=== PATIENT | male | born 1950 | race Caucasian/White ===

== ENCOUNTER → 2016-12-14 | Outpatient (CLI) | payer OTHER | END | disposition home or self-care (01) | LOC: GMAM 15:10 | PROVIDERS: ATTEND Family Medicine | DX: Z00.00 Encounter for general adult medical examination without abnormal findings (principal); R80.9 Proteinuria, unspecified ==

== ENCOUNTER → 2017-02-15 | Outpatient (CLI) | payer OTHER | END | disposition home or self-care (01) | LOC: GMAM 15:02 | PROVIDERS: ATTEND Family Medicine | DX: R97.20 Elevated prostate specific antigen [PSA] (principal) ==

== ENCOUNTER → 2017-08-25 | Outpatient (CLI) | payer OTHER | LOC: GMAM 14:57 | PROVIDERS: ATTEND Family Medicine | DX: R97.20 Elevated prostate specific antigen [PSA] (principal) ==

== ENCOUNTER → 2018-03-02 | Outpatient (CLI) | payer MEDICARE | LOC: LAB.O 14:05 | PROVIDERS: ATTEND Urology | DX: R97.20 Elevated prostate specific antigen [PSA] (principal) ==

== ENCOUNTER → 2018-05-04 | Outpatient (CLI) | payer MEDICARE | LOC: GMAM 12:33 | PROVIDERS: ATTEND Family Medicine | DX: R97.20 Elevated prostate specific antigen [PSA] (principal) ==

== ENCOUNTER → 2018-11-01 | Outpatient (CLI) | payer MEDICARE | LOC: GMAM 11:58 | PROVIDERS: ATTEND Family Medicine | DX: E29.9 Testicular dysfunction, unspecified (principal) ==

== ENCOUNTER → 2019-04-26 | Outpatient (CLI) | payer MEDICARE | LOC: LAB.O 13:58 | PROVIDERS: ATTEND Urology | DX: R97.20 Elevated prostate specific antigen [PSA] (principal) ==

== ENCOUNTER → 2019-05-08 | Outpatient (CLI) | payer MEDICARE | LOC: GMA 11:48 | PROVIDERS: ATTEND Family Medicine | DX: E29.9 Testicular dysfunction, unspecified (principal); I10 Essential (primary) hypertension; R73.09 Other abnormal glucose; Z12.5 Encounter for screening for malignant neoplasm of prostate ==

== ENCOUNTER → 2019-06-09 | Outpatient (CLI) | payer MEDICARE ==
--- NOTE | 2019-06-09 15:12 | US ---
EXAM DESCRIPTION: Extremity,Lower Roni Arteries: Ultrasound. CLINICAL HISTORY: IDIOPATHIC PROGRESSIVE NEUROPATHY COMPARISON: None. TECHNIQUE: Doppler evaluation of the bilateral lower extremity arterial flow waveforms and velocities. FINDINGS: Arterial waveforms in the right lower extremity are triphasic from the right common femoral artery through the right dorsalis pedis artery.. Arterial waveforms in the left lower extremity are triphasic from the left common femoral artery through the left dorsalis pedis artery.. Comments: Velocities are symmetric bilaterally except for elevation of the right posterior tibial artery velocity and decrease in the right peroneal artery velocity. Also slight elevation of the right dorsalis pedis artery velocity. IMPRESSION: Doppler evaluation of the bilateral lower extremity arterial systems showing no evidence of significant atherosclerotic occlusive disease. If these findings are discordant with clinical findings, consider follow-up lower extremity CTA. Electronically signed by: Anatoly Henning MD 06/09/2019 3:11 PM CDT
== END ==
LOC: US 13:30
PROVIDERS: ATTEND Family Medicine
DX: G60.3 Idiopathic progressive neuropathy (principal)

== ENCOUNTER → 2019-10-13 | Outpatient (CLI) | payer MEDICARE ==
--- NOTE | 2019-10-13 17:02 | MRI ---
EXAM DESCRIPTION: Knee,Left CLINICAL HISTORY: PAIN IN LEFT KNEE. Pain, medial side under patella, stepped off ladder wrong. COMPARISON: Radiograph 10/10/2019. TECHNIQUE: MRI of the left knee is performed with multiplanar multi sequence imaging, without intravenous contrast. FINDINGS: Bone and joint: Nondisplaced fracture of the lateral tibial plateau (posterior aspect) with moderate surrounding bone marrow edema. There is minimal (approximately 1 mm) cortical step-off along the periphery of the fracture. This is associated with nondisplaced fissuring of the overlying cartilage. Mild grade 1 anterolisthesis of the lateral knee compartment. Focal grade 4 chondral fissuring involves the medial patellar facet. There is full-thickness cartilage loss at the lateral patellar facet superiorly. Medial meniscus: Increased degenerative intrasubstance signal within the posterior horn and body without definite tear Lateral meniscus: Possible nondisplaced horizontal cleavage tear of the body and posterior horn body junction (for example series 6 one image 21). No displaced meniscal fragment. Anterior cruciate ligament: Intact Posterior cruciate ligament: Intact Medial collateral ligament: Intact Lateral collateral ligament: Intact Popliteus tendon: Intact Biceps femoris tendon: Intact Iliotibial band: Intact Medial and lateral retinaculum: Intact Extensor mechanism: The distal quadriceps tendon is intact. The patella tendon is intact. Soft tissues: Trace Leigh's cyst. Nonspecific prepatellar and infrapatellar soft tissue edema. IMPRESSION: 1. Posterior lateral tibial plateau nondisplaced fracture with moderate associated bone marrow edema/contusion. Minimal step-off of the subchondral bone plate with mild overlying cartilage fissuring. 2. Possible nondisplaced lateral meniscus tear. 3. High-grade patellofemoral chondrosis with full-thickness cartilage loss along the superior lateral patella facet. Electronically signed by: Donn Barnhart DO 10/13/2019 5:00 PM [facility]
== END ==
LOC: MRI 12:39
PROVIDERS: ATTEND Nurse Practitioner Family
DX: S82.124A Nondisplaced fracture of lateral condyle of right tibia, initial encounter for closed fracture (principal); M22.42 Chondromalacia patellae, left knee

== ENCOUNTER → 2019-10-23 | Outpatient (CLI) | payer MEDICARE ==
--- NOTE | 2019-10-23 09:13 | RAD ---
EXAM DESCRIPTION: Knee,Left 1 or 2 Views CLINICAL HISTORY: 69 years Male, PAIN IN LEFT KNEE AP LAT TECHNIQUE: 2 views of the left knee were performed. COMPARISON: MRI left knee dated October 13, 2019 and radiograph October 10, 2019. FINDINGS: The visualized bones appear well mineralized. Subtle lucency through the lateral tibial plateau with slight depression consistent with lateral tibial plateau fracture as seen on the MRI. The medial and lateral compartment joint space are well-maintained. Small amount of suprapatellar joint effusion. Mild patellofemoral compartment osteoarthritis. The overlying soft tissues appear grossly unremarkable. IMPRESSION: 1. Subtle lucency through the lateral tibial plateau with slight depression consistent with lateral tibial plateau fracture as noted on the recent MRI. Electronically signed by: Moses Robledo MD 10/23/2019 9:12 AM [facility]
== END ==
LOC: RAD 07:47
PROVIDERS: ATTEND Orthopaedic Surgery
DX: S82.124D Nondisplaced fracture of lateral condyle of right tibia, subsequent encounter for closed fracture with routine healing (principal)

== ENCOUNTER → 2019-11-23 | Outpatient (CLI) | payer MEDICARE ==
--- NOTE | 2019-11-23 17:36 | RAD ---
EXAM DESCRIPTION: Knee,Left 1 or 2 Views CLINICAL HISTORY: 69 years Male, CLOSED FRACTURE OF TIBIAL PLATEAU LEFT COMPARISON: 10/23/2019 Findings: Two views/radiographs The previously described lateral tibial plateau fracture lucency is less apparent on today's examination compatible with healing. No new fracture identified. Joint spaces are preserved. No dislocation. No joint effusion. IMPRESSION: Healing lateral tibial plateau fracture. Electronically signed by: Godwin Suero MD 11/23/2019 5:34 PM [facility]
== END ==
LOC: RAD 10:27
PROVIDERS: ATTEND Orthopaedic Surgery
DX: S82.102D Unspecified fracture of upper end of left tibia, subsequent encounter for closed fracture with routine healing (principal)

== ENCOUNTER → 2019-12-21 | Outpatient (CLI) | payer MEDICARE ==
--- NOTE | 2019-12-21 14:03 | RAD ---
EXAM DESCRIPTION: Knee,Left 1 or 2 Views CLINICAL HISTORY: CLOSED FX OF TIBIAL PLATEAU COMPARISON: 23 November 2019 TECHNIQUE: 2 views left FINDINGS: Mild patellofemoral joint arthritis is observed. No longer can see evidence of a lateral tibial plateau injury. I feel the fracture is healed. IMPRESSION: I no longer can see evidence of the lateral tibial plateau fracture. A filly injury has healed. Electronically signed by: Carlito Lowe MD 12/21/2019 2:01 PM [facility]
== END ==
LOC: RAD 10:17
PROVIDERS: ATTEND Orthopaedic Surgery
DX: S82.102D Unspecified fracture of upper end of left tibia, subsequent encounter for closed fracture with routine healing (principal)

== ENCOUNTER → 2020-05-28 | Outpatient (CLI) | payer MEDICARE | LOC: GMAM 11:17 | PROVIDERS: ATTEND Family Medicine | DX: Z12.5 Encounter for screening for malignant neoplasm of prostate (principal); E29.9 Testicular dysfunction, unspecified; E78.2 Mixed hyperlipidemia; I10 Essential (primary) hypertension | CPT/HCPCS: 84403; G0103 ==